=== PATIENT | female | born 1985 | race Caucasian/White ===

== ENCOUNTER 2016-06-15 08:21 | Emergency (ER) | payer OTHER ==
[2016-06-15 08:33] VITALS: BMI 24.5
--- NOTE | 2016-06-15 09:05 | ED PDOC ---
HPI: General Adult Time Seen by Provider: 06/15/16 08:50 Chief Complaint (Nursing): Dizziness/Lightheaded Chief Complaint (Provider): body aches History Per: Patient, Family History/Exam Limitations: no limitations Additional Complaint(s): 30yo female comes with family for complaint of throat pain since last night. Also reports sore throat, headache, body aches, sweats, nausea. No vomit or abdominal pain. Past Medical History Vital Signs: Last Vital Signs Temp 99.2 F 06/15/16 08:33 Pulse 72 06/15/16 08:33 Resp 19 06/15/16 08:33 BP 95/49 L 06/15/16 08:33 Pulse Ox 99 06/15/16 09:05 - Home Medications Home Medications: Ambulatory Orders Medication Instructions Recorded Vit No.126/Iron/FA 1 tab PO DAILY 06/30/15 [Classic Tablet] Ferrous Sulfate [Feosol] 325 mg PO BID #0 tab 07/03/15 Ibuprofen [Motrin Tab] 600 mg PO Q6 PRN #0 tab 07/03/15 - Allergies Allergies/Adverse Reactions: Allergies Allergy/AdvReac Type Severity Reaction Status Date / Time No Known Allergies Allergy Verified 06/30/15 19:56 Review of Systems ROS Statement: Except As Marked, All Systems Reviewed And Found Negative Constitutional: Positive for: Sweats, Other (body aches) Gastrointestinal: Positive for: Nausea. Negative for: Vomiting, Abdominal Pain Neurological: Positive for: Headache - ECG O2 Sat by Pulse Oximetry: 99 Disposition - Disposition Disposition Time: 09:05 Additional Comments - Additional Comments Additional Comments: Scribe Attestation: Documented by Otilio Sanford acting as a scribe for Andrew Lovelace DO. Provider Scribe Attestation: All medical record entries made by the Scribe were at my direction and personally dictated by me. I have reviewed the chart and agree that the record accurately reflects my personal performance of the history, physical exam, medical decision making, and the department course for this patient. I have also personally directed, reviewed, and agree with the discharge instructions and disposition.
[2016-06-15 09:59] VITALS: BP 128/76; PULSE 78; RESP 20; TEMP 97.7; O2SAT 98
== END 2016-06-15 09:59 | disposition home or self-care (01) ==
LOC: H.ER 08:21
DX: R11.0 Nausea (principal)